=== PATIENT | male | born 1950 | race Two or more races ===

== ENCOUNTER 2016-05-22 12:24 | Inpatient (IN) | payer MEDICAID ==
[~2016-05-22] VITALS: Ht 172.7 cm; Wt 68.0 kg
[2016-05-22 13:11] VITALS: BP 123/77
[2016-05-22 13:28] LABS: EOSINOPHILS % (AUTO) 2.5 % (0.0-3.0); LYMPHOCYTES % (AUTO) 20.6 % (20.0-45.0); MEAN CORPUSCULAR HEMOGLOBIN 27.7 PG (27.0-31.0); MEAN CORPUSCULAR HGB CONC 32.6 G/DL (32.0-36.0); MEAN CORPUSCULAR VOLUME 85 FL (80-99); MONOCYTES % (AUTO) 5.1 % (1.0-10.0); NEUTROPHILS % (AUTO) 70.8 % (45.0-75.0); PLATELET COUNT 348 K/UL (150-450); RED CELL DISTRIBUTION WIDTH 13.2 % (11.6-14.8); WHITE BLOOD COUNT 6.2 K/UL (4.8-10.8)
[2016-05-22 13:33] LABS: PROTHROMBIN TIME 10.4 SEC (9.30-11.50)
[2016-05-22 13:40] LABS: TROPONIN I < 0.30 ng/mL (<=0.30)
[2016-05-22 13:41] LABS: ALANINE AMINOTRANSFERASE 70 U/L (3-41); ALBUMIN/GLOBULIN RATIO 0.9 (1.0-2.7); ALCOHOL < 10 mg/dL; ANION GAP 20 (5-15); ASPARTATE AMINO TRANSFERASE 74 U/L (5-40); CALCIUM 9.3 mg/dL (8.6-10.2); CARBON DIOXIDE 19 mEQ/L (20-30); CHLORIDE 97 mEQ/L (98-107); CREATININE 2.7 mg/dL (0.7-1.2); GLOMERULAR FILTRATION RATE 23.9 mL/min (>60); HEMOLYSIS 94; POTASSIUM 5.3 mEQ/L (3.4-4.9); SODIUM 136 mEQ/L (135-145); TOTAL PROTEIN 8.4 g/dL (6.6-8.7)
--- NOTE | 2016-05-22 14:17 | Diagnostic Imaging Report ---
Indication: Altered mental status Technique: spiral acquisitions obtained through the brain. Angled axial and coronal 5 x 5 mm slices were reconstructed. No IV contrast utilized. Radiation dose was minimized using automated exposure control Total dose length product 1354 mGycm. CTDIvol(s) 70 mGy Comparison: none FINDINGS: No acute hemorrhage or edema. No mass effect or midline shift. There is age-related enlargement of the ventricles and extra axial CSF spaces. There is periventricular deep white matter ischemic change. Normal loza-white differentiation. Visualized orbits are unremarkable. Visualized sinuses are unremarkable. Intact calvarium. IMPRESSION: Chronic and age-related changes. Negative for acute intracranial bleed or mass effect The CT scanner at [facility] is accredited by the [employer] and the scans are performed using protocols designed to limit radiation exposure to as low as reasonably achievable to attain images of sufficient resolution adequate for diagnostic evaluation
--- NOTE | 2016-05-22 14:42 | Emergency Room Report ---
History of Present Illness General Chief Complaint: Altered Level of Consciousness Source: EMS Present Illness HPI Patient is a 66-year-old male brought in by EMS after increased altered level consciousness. Patient reportedly had a stroke last week. Patient was noted to have increased difficulty with his left upper extremities and lower extremity. Patient prior history of renal insufficiency. The patient is unaware of his medications. Allergies: Coded Allergies: No Known Allergies (Unverified , 05/22/16) Patient History Past Medical History: old chart reviewed Reviewed Nursing Documentation: PMH: Agreed, PSxH: Agreed Nursing Documentation-PMH Hx Cardiac Problems: No Hx Hypertension: Yes Hx Pacemaker: No Hx Asthma: No Hx COPD: No Hx Diabetes: No Hx Cancer: No Hx Gastrointestinal Problems: No Hx Dialysis: No History Of Psychiatric Problem: No Hx Neurological Problems: No Hx Cerebrovascular Accident: Yes Hx Seizures: No Review of Systems All Other Systems: negative except mentioned in HPI Physical Exam Vital Signs Date Time Temp Pulse Resp B/P Pulse Ox O2 Delivery O2 Flow Rate FiO2 05/22/16 12:19 98.1 78 16 108/60 98 Room Air Sp02 EP Interpretation: reviewed, normal General Appearance: normal inspection, alert Head: atraumatic ENT: normal ENT inspection, hearing grossly normal, normal voice, dry mucus membranes Neck: normal inspection, full range of motion, supple, no bony tend Respiratory: normal inspection, lungs clear, normal breath sounds, no respiratory distress, no retraction, no wheezing Cardiovascular #1: regular rate, rhythm, no edema Gastrointestinal: normal inspection, normal bowel sounds, non tender, soft, no guarding, no hernia Musculoskeletal: decreased range of motion Neurologic: alert, responsive, motor weakness, other - slurred speech, left side weakness, hyperreflexia Psychiatric: normal inspection, judgement/insight normal, mood/affect normal Skin: normal inspection, normal color, no rash Medical Decision Making Diagnostic Impression: Primary Impression: Altered level of consciousness Additional Impressions: CVA, old, hemiparesis Hyperkalemia Renal insufficiency ER Course Patient presented for weakness. Patient presented for generalized weakness. Differential diagnosis included was not limited to anemia, urinary tract infection, electrolyte abnormality, hypothyroidism, myocardial infarction, myasthenia gravis, dehydration, among others. Because of complexity of patient' s case laboratory testing and imaging studies were ordered. The CT the head read by radiologist showed atrophic changes without evident acute hemorrhage or infarct. Patient was given IV fluids the patient given Kayexalate for hyperkalemia. I EKG interpreted by me showed left ventricular hypertrophy with normal sinus rhythm rate of 77 there were no acute ST changes noted. There was noted to be multiple areas of T wave inversion. Laboratory testing was notable for renal insufficiency and hyperkalemia and patient was started on IV fluids. Labs Test 05/22/16 13:00 White Blood Count 6.2 K/UL (4.8-10.8) Red Blood Count 3.80 M/UL (4.70-6.10) Hemoglobin 10.5 G/DL (14.2-18.0) Hematocrit 32.3 % (42.0-52.0) Mean Corpuscular Volume 85 FL (80-99) Mean Corpuscular Hemoglobin 27.7 PG (27.0-31.0) Mean Corpuscular Hemoglobin Concent 32.6 G/DL (32.0-36.0) Red Cell Distribution Width 13.2 % (11.6-14.8) Platelet Count 348 K/UL (150-450) Mean Platelet Volume 6.0 FL (6.5-10.1) Neutrophils (%) (Auto) 70.8 % (45.0-75.0) Lymphocytes (%) (Auto) 20.6 % (20.0-45.0) Monocytes (%) (Auto) 5.1 % (1.0-10.0) Eosinophils (%) (Auto) 2.5 % (0.0-3.0) Basophils (%) (Auto) 1.0 % (0.0-2.0) Prothrombin Time 10.4 SEC (9.30-11.50) Prothromb Time International Ratio 1.0 (0.9-1.1) Activated Partial Thromboplast Time 22 SEC (23-33) Sodium Level 136 mEQ/L (135-145) Potassium Level 5.3 mEQ/L (3.4-4.9) Chloride Level 97 mEQ/L (98-107) Carbon Dioxide Level 19 mEQ/L (20-30) Anion Gap 20 (5-15) Blood Urea Nitrogen 39 mg/dL (7-23) Creatinine 2.7 mg/dL (0.7-1.2) Estimat Glomerular Filtration Rate 23.9 mL/min (>60) Glucose Level 97 mg/dL (74-106) Calcium Level 9.3 mg/dL (8.6-10.2) Total Bilirubin < 0.2 mg/dL (0.0-1.2) Aspartate Amino Transf (AST/SGOT) 74 U/L (5-40) Alanine Aminotransferase (ALT/SGPT) 70 U/L (3-41) Alkaline Phosphatase 44 U/L (40-129) Troponin I < 0.30 ng/mL (<=0.30) Total Protein 8.4 g/dL (6.6-8.7) Albumin 4.0 g/dL (3.5-5.2) Globulin 4.4 g/dL Albumin/Globulin Ratio 0.9 (1.0-2.7) Serum Alcohol < 10 mg/dL EKG Diagnostic Results Rate: normal Rhythm: NSR ST Segments: other - twave inversion Last Vital Signs Date Time Temp Pulse Resp B/P Pulse Ox O2 Delivery O2 Flow Rate FiO2 05/22/16 13:11 98.5 79 18 123/77 99 Room Air Status: unchanged Disposition: ADMITTED INPATIENT Condition: Serious Referrals: [facility],REFERRING (PCP) Karri Gardner May 22, 2016 14:42
[2016-05-22 14:45] VITALS: BP 126/80
[2016-05-22] MEDS ORDERED: Sodium Polystyrene Sulfonate 15gm Powder ORAL ONE (14:45)
[2016-05-22] MEDS ORDERED: DuoNeb 0.5-3(2.5)mg/3ml neb HHN PRN (16:15)
[2016-05-22] MEDS ORDERED: LORazepam Inj 2mg/ml 1ml IV PRN (16:15)
[2016-05-22] MEDS ORDERED: Nitroglycerin Subl 0.4mg tab (Bottle Of 25) SL PRN (16:15)
[2016-05-22] MEDS ORDERED: Mylanta II UD 30ml ORAL PRN (16:15)
[2016-05-22] MEDS ORDERED: Promethazine/Codeine 5ml UD ORAL PRN (16:15)
[2016-05-22] MEDS ORDERED: Miralax 17gm pkt ORAL PRN (16:15)
[2016-05-22 17:00] VITALS: BP 154/80
[2016-05-22 18:00] VITALS: BP 149/85
[2016-05-22] MEDS ORDERED: UNOBMED (18:16)
[2016-05-22] MEDS: D5 1/2NS 1,000 ML IV SCH (18:21)
[2016-05-22 19:00] VITALS: BP 142/82
[2016-05-22 20:00] VITALS: BP 147/63
[2016-05-22] MEDS: Heparin 5000 units/ml inj SUBQ SCH (21:20)
[2016-05-22] MEDS: Morphine Sulfate 2mg/ml Inj IVP PRN (21:22)
[2016-05-23] VITALS: BP 165/93
[2016-05-23] MEDS: D5 1/2NS 1,000 ML IV SCH ×2 (01:31→14:29)
[2016-05-23] MEDS: Morphine Sulfate 2mg/ml Inj IVP PRN ×3 (03:30→23:02)
[2016-05-23 04:00] VITALS: BP 131/89
[2016-05-23 08:03] LABS: BASOPHILS % (AUTO) 1.5 % (0.0-2.0); EOSINOPHILS % (AUTO) 4.8 % (0.0-3.0); LYMPHOCYTES % (AUTO) 29.1 % (20.0-45.0); MEAN CORPUSCULAR HEMOGLOBIN 27.2 PG (27.0-31.0); MEAN CORPUSCULAR HGB CONC 31.3 G/DL (32.0-36.0); MEAN CORPUSCULAR VOLUME 87 FL (80-99); MEAN PLATELET VOLUME 5.7 FL (6.5-10.1); MONOCYTES % (AUTO) 8.1 % (1.0-10.0); NEUTROPHILS % (AUTO) 56.5 % (45.0-75.0); PLATELET COUNT 332 K/UL (150-450); RED BLOOD COUNT 3.55 M/UL (4.70-6.10); RED CELL DISTRIBUTION WIDTH 12.8 % (11.6-14.8)
[2016-05-23 08:10] LABS: PROTHROMBIN TIME 10.6 SEC (9.30-11.50)
[2016-05-23 08:18] LABS: ALBUMIN/GLOBULIN RATIO 0.9 (1.0-2.7); CALCIUM 9.1 mg/dL (8.6-10.2); CHOLESTEROL/HDL RATIO 2.4 (3.3-4.4); CREATININE 2.2 mg/dL (0.7-1.2); GLOMERULAR FILTRATION RATE 30.3 mL/min (>60); POTASSIUM 4.5 mEQ/L (3.4-4.9); TOTAL PROTEIN 7.5 g/dL (6.6-8.7)
[2016-05-23 08:40] LABS: FREE T3 2.4 pg/mL (2.3-4.2); THYROID STIMULATING HORMONE 0.506 uIU/mL (0.300-4.500)
[2016-05-23 08:42] VITALS: BP 145/88
[2016-05-23 08:43] LABS: APPEARANCE,URINE CLEAR; KETONES,URINE NEGATIVE (NEGATIVE); LEUKOCYTE ESTERASE ,URINE NEGATIVE (NEGATIVE); NITRITE,URINE NEGATIVE (NEGATIVE); PH,URINE 6.5 (4.5-8.0); PROTEIN,URINE 3+ (NEGATIVE); UROBILINOGEN,URINE NORMAL MG/DL (0.0-1.0)
[2016-05-23 08:52] LABS: MAGNESIUM 1.9 mg/dL (1.7-2.5); PHOSPHORUS 4.5 mg/dL (2.5-4.8); URIC ACID 8.4 mg/dL (3.0-7.5)
[2016-05-23] MEDS: Heparin 5000 units/ml inj SUBQ SCH ×2 (09:00→21:00)
[2016-05-23 09:31] LABS: BACTERIA,URINE OCCASIONAL /HPF; RBC,URINE 0-2 /HPF (0 - 0); SQUAMOUS EPITHELIAL CELL,UR OCCASIONAL /LPF (NONE/OCC); WBC,URINE 0-2 /HPF (0 - 0)
--- NOTE | 2016-05-23 10:34 | Diagnostic Imaging Report ---
Indications: Abnormal renal function tests Technique: Transabdominal real-time grayscale and duplex Doppler imaging of the kidneys, retroperitoneum, and urinary bladder was performed Findings: Comparison: None Right kidney measures 8.7 cm in length. Normal contour, echotexture, cortical thickness. No stones, other focal lesions, hydronephrosis, or obvious perinephric abnormalities. Left kidney measures 9.7 cm in length. Normal contour, echotexture, cortical thickness. 10 mm circumscribed anechoic focus lower pole cortex. No stones, other focal lesions, hydronephrosis, or obvious perinephric abnormalities. The intrahepatic portion of inferior vena cava is patent and normal caliber. The urinary bladder is moderately distended without obvious abnormality. IMPRESSION: Left renal cortical small cyst Otherwise sonographically unremarkable kidneys
[2016-05-23 11:47] VITALS: BP 148/85
--- NOTE | 2016-05-23 14:34 | Cardiology Report ---
APPROVED REPORT EKG Measurement Heart [id number] Normal sinus rhythm T wave abnormality, consider lateral ischemia Prolonged QT Abnormal ECG
--- NOTE | 2016-05-23 15:22 | Cardiac Electrophysiology PN ---
Subjective Subjective [id number] Objective Last 24 Hour Vital Signs Date Time Temp Pulse Resp B/P Pulse Ox O2 Delivery O2 Flow Rate FiO2 05/23/16 11:47 97.5 73 20 148/85 95 Room Air 05/23/16 08:42 96.9 66 18 145/88 98 Room Air 05/23/16 08:00 68 05/23/16 04:00 97.9 67 16 131/89 99 Room Air 05/23/16 04:00 69 05/23/16 04:00 98.5 05/23/16 02:27 165/93 05/23/16 00:00 98.2 66 18 165/93 98 Room Air 05/23/16 00:00 67 05/22/16 20:30 98.5 77 14 142/82 99 Room Air 05/22/16 20:00 97.3 88 18 147/63 99 Room Air 05/22/16 19:00 98.5 77 14 142/82 99 Room Air 05/22/16 18:00 98.5 78 15 149/85 99 Room Air 05/22/16 17:00 98.5 81 17 154/80 99 Room Air Intake and Output 05/22/16 05/23/16 19:00 07:00 Intake Total 1000 ml 500 ml Output Total 200 ml 500 ml Balance 800 ml 0 ml IV Total 1000 ml 500 ml Output Urine Total 200 ml 500 ml Laboratory Tests Test 05/23/16 06:00 05/23/16 07:40 Urine Color Yellow Urine Appearance Clear Urine pH 6.5 (4.5-8.0) Urine Specific [place] 1.005 (1.005-1.035) Urine Protein 3+ (NEGATIVE) H Urine Glucose (UA) Negative (NEGATIVE) Urine Ketones Negative (NEGATIVE) Urine Occult Blood Negative (NEGATIVE) Urine Nitrite Negative (NEGATIVE) Urine Bilirubin Negative (NEGATIVE) Urine Urobilinogen Normal MG/DL (0.0-1.0) Urine Leukocyte Esterase Negative (NEGATIVE) Urine RBC 0-2 /HPF (0 - 0) H Urine WBC 0-2 /HPF (0 - 0) Urine Squamous Epithelial Cells Occasional /LPF Urine Bacteria Occasional /HPF (NONE) Urine Eosinophils None seen White Blood Count 5.0 K/UL (4.8-10.8) Red Blood Count 3.55 M/UL (4.70-6.10) L Hemoglobin 9.7 G/DL (14.2-18.0) L Hematocrit 30.8 % (42.0-52.0) L Mean Corpuscular Volume 87 FL (80-99) Mean Corpuscular Hemoglobin 27.2 PG (27.0-31.0) Mean Corpuscular Hemoglobin Concent 31.3 G/DL (32.0-36.0) L Red Cell Distribution Width 12.8 % (11.6-14.8) Platelet Count 332 K/UL (150-450) Mean Platelet Volume 5.7 FL (6.5-10.1) L Neutrophils (%) (Auto) 56.5 % (45.0-75.0) Lymphocytes (%) (Auto) 29.1 % (20.0-45.0) Monocytes (%) (Auto) 8.1 % (1.0-10.0) Eosinophils (%) (Auto) 4.8 % (0.0-3.0) H Basophils (%) (Auto) 1.5 % (0.0-2.0) Prothrombin Time 10.6 SEC (9.30-11.50) Prothromb Time International Ratio 1.0 (0.9-1.1) Activated Partial Thromboplast Time 21 SEC (23-33) L Sodium Level 140 mEQ/L (135-145) Potassium Level 4.5 mEQ/L (3.4-4.9) Chloride Level 102 mEQ/L (98-107) Carbon Dioxide Level 21 mEQ/L (20-30) Anion Gap 17 (5-15) H Blood Urea Nitrogen 35 mg/dL (7-23) H Creatinine 2.2 mg/dL (0.7-1.2) H Estimat Glomerular Filtration Rate 30.3 mL/min (>60) Glucose Level 90 mg/dL (74-106) Plasma/Serum Osmolality Pending Uric Acid 8.4 mg/dL (3.0-7.5) H Calcium Level 9.1 mg/dL (8.6-10.2) Phosphorus Level 4.5 mg/dL (2.5-4.8) Magnesium Level 1.9 mg/dL (1.7-2.5) Total Bilirubin 0.4 mg/dL (0.0-1.2) Aspartate Amino Transf (AST/SGOT) 55 U/L (5-40) H Alanine Aminotransferase (ALT/SGPT) 55 U/L (3-41) H Alkaline Phosphatase 39 U/L (40-129) L Total Creatine Kinase 110 U/L (38-174) Total Protein 7.5 g/dL (6.6-8.7) Albumin 3.6 g/dL (3.5-5.2) Globulin 3.9 g/dL Albumin/Globulin Ratio 0.9 (1.0-2.7) L Triglycerides Level 124 mg/dL (< 150) Cholesterol Level 109 mg/dL (< 200) LDL Cholesterol 39 mg/dL (60-99) L HDL Cholesterol 45 mg/dL (> 60) Cholesterol/HDL Ratio 2.4 (3.3-4.4) L Thyroid Stimulating Hormone (TSH) 0.506 uIU/mL (0.300-4.500) Free Thyroxine 1.21 ng/dL (0.86-1.85) Free Triiodothyronine 2.4 pg/mL (2.3-4.2) Cortisol Pending HAILEY LOOMIS May 23, 2016 15:22
[2016-05-23 16:00] VITALS: BP 162/88
[2016-05-23 20:00] VITALS: BP 161/60
--- NOTE | 2016-05-23 21:19 | Consultation ---
DATE OF CONSULTATION: 05/23/2013 CARDIOLOGY CONSULTATION CONSULTING PHYSICIAN: Sascha Joseph M.D. REFERRING PHYSICIAN: Yo Whitehead M.D. REASON FOR CONSULTATION: Management of hypertension and altered level of consciousness. HISTORY OF PRESENT ILLNESS: The patient is a 66-year-old gentleman who reported he had a stroke last week, was brought to the emergency room for difficulty with left upper extremity and left lower extremity. The patient also has history of renal insufficiency and was found to have hyperkalemia and renal failure. The blood pressure in the emergency room was 108/60, pulse is 78, and temperature was 98.1. At the time of my evaluation, the patient is unable to provide meaningful information, but this patient does not have any chest pain or shortness of breath. REVIEW OF SYSTEMS: Negative other than what was mentioned in the history of present illness. PAST MEDICAL HISTORY: 1. Hypertension. 2. Chronic kidney disease. 3. History of CVA. FAMILY HISTORY: Noncontributory. PHYSICAL EXAMINATION: VITAL SIGNS: Blood pressure is 148/85, was 165/92 in the emergency room; pulse 72, respirations . NECK: Shows no JVD. LUNGS: Coarse rhonchi. CARDIOVASCULAR: Shows regular S1 and S2 with no gallop or murmur. ABDOMEN: Soft. EXTREMITIES: No pitting edema. LABORATORY DATA: His EKG shows sinus rhythm with T-wave abnormalities suggestive of lateral ischemia, inferolateral ischemia. Labs show a white count of 5, hemoglobin 9.7, hematocrit 28.8, and platelet count 332,000. Sodium 140, potassium 4.5, BUN of 35, and creatinine 2.2. Initial potassium is 5.3. Troponin is negative. ASSESSMENT AND PLAN: 1. Abnormal electrocardiogram, suggestive of inferolateral ischemia. The patient does not have any chest pain. The first set of cardiac enzymes are negative. We will get an echocardiogram and completely rule out myocardial infarction protocol. 2. Mild hypertension. Hold of antihypertensives at this time in view of possible recurrence of the stroke. The patient underwent a head CT, which showed chronic age-related changes, negative for acute intracranial bleed or mass effect. Further evaluation by Neurology. 3. Chronic kidney disease. 4. History of recent stroke. Thank you very much, Dr. Whitehead, for allowing me participate in the care of this patient. Please do not hesitate to contact me for any questions regarding my evaluation. Sascha Joseph M.D. DR: CARLOS JOB#: [id number] CC:
--- NOTE | 2016-05-23 22:33 | History and Physical ---
History of Present Illness General Date patient seen: May 23, 2016 Reason for Hospitalization: Altered Level of Consciousness Present Illness HPI This patient is a 66-year-old male with PMH for HTN, CKD, and recent CVA who presented to the ED for worsening altered mental status. Patient was also reported to have difficulty with left upper extremity and left lower extremity weakness. Patient is unable to give further history. Allergies: Coded Allergies: No Known Allergies (Unverified , 05/22/16) Medication History Miscellaneous Medications Unable to Obtain Medications (Unable To Obtain Meds), (Reported) Patient History Limited by: medical condition History Provided By: Medical Record Healthcare decision maker Resuscitation status Full Code Advanced Directive on File Past Medical/Surgical History Past Medical/Surgical History: (1) HTN (hypertension) (2) CVA, old, hemiparesis (3) Renal insufficiency Review of Systems ROS Narrative limited due to pts mental status. Physical Exam General Appearance: WD/WN, no apparent distress HEENT: normocephalic Neck: supple Respiratory/Chest: lungs clear Cardiovascular/Chest: normal rate, regular rhythm Abdomen: non tender, soft Extremities: no edema Neurologic: alert Last 24 Hour Vital Signs Date Time Temp Pulse Resp B/P Pulse Ox O2 Delivery O2 Flow Rate FiO2 05/23/16 20:00 97.5 69 18 161/60 95 Room Air 05/23/16 16:00 97.5 72 19 162/88 100 Room Air 05/23/16 11:47 97.5 73 20 148/85 95 Room Air 05/23/16 08:42 96.9 66 18 145/88 98 Room Air 05/23/16 08:00 68 05/23/16 04:00 97.9 67 16 131/89 99 Room Air 05/23/16 04:00 69 05/23/16 04:00 98.5 05/23/16 02:27 165/93 05/23/16 00:00 98.2 66 18 165/93 98 Room Air 05/23/16 00:00 67 Intake and Output 05/22/16 05/23/16 19:00 07:00 Intake Total 1000 ml 500 ml Output Total 200 ml 500 ml Balance 800 ml 0 ml IV Total 1000 ml 500 ml Output Urine Total 200 ml 500 ml Laboratory Tests Test 05/23/16 06:00 05/23/16 07:40 Urine Color Yellow Urine Appearance Clear Urine pH 6.5 (4.5-8.0) Urine Specific [place] 1.005 (1.005-1.035) Urine Protein 3+ (NEGATIVE) H Urine Glucose (UA) Negative (NEGATIVE) Urine Ketones Negative (NEGATIVE) Urine Occult Blood Negative (NEGATIVE) Urine Nitrite Negative (NEGATIVE) Urine Bilirubin Negative (NEGATIVE) Urine Urobilinogen Normal MG/DL (0.0-1.0) Urine Leukocyte Esterase Negative (NEGATIVE) Urine RBC 0-2 /HPF (0 - 0) H Urine WBC 0-2 /HPF (0 - 0) Urine Squamous Epithelial Cells Occasional /LPF Urine Bacteria Occasional /HPF (NONE) Urine Eosinophils None seen White Blood Count 5.0 K/UL (4.8-10.8) Red Blood Count 3.55 M/UL (4.70-6.10) L Hemoglobin 9.7 G/DL (14.2-18.0) L Hematocrit 30.8 % (42.0-52.0) L Mean Corpuscular Volume 87 FL (80-99) Mean Corpuscular Hemoglobin 27.2 PG (27.0-31.0) Mean Corpuscular Hemoglobin Concent 31.3 G/DL (32.0-36.0) L Red Cell Distribution Width 12.8 % (11.6-14.8) Platelet Count 332 K/UL (150-450) Mean Platelet Volume 5.7 FL (6.5-10.1) L Neutrophils (%) (Auto) 56.5 % (45.0-75.0) Lymphocytes (%) (Auto) 29.1 % (20.0-45.0) Monocytes (%) (Auto) 8.1 % (1.0-10.0) Eosinophils (%) (Auto) 4.8 % (0.0-3.0) H Basophils (%) (Auto) 1.5 % (0.0-2.0) Prothrombin Time 10.6 SEC (9.30-11.50) Prothromb Time International Ratio 1.0 (0.9-1.1) Activated Partial Thromboplast Time 21 SEC (23-33) L Sodium Level 140 mEQ/L (135-145) Potassium Level 4.5 mEQ/L (3.4-4.9) Chloride Level 102 mEQ/L (98-107) Carbon Dioxide Level 21 mEQ/L (20-30) Anion Gap 17 (5-15) H Blood Urea Nitrogen 35 mg/dL (7-23) H Creatinine 2.2 mg/dL (0.7-1.2) H Estimat Glomerular Filtration Rate 30.3 mL/min (>60) Glucose Level 90 mg/dL (74-106) Plasma/Serum Osmolality Pending Uric Acid 8.4 mg/dL (3.0-7.5) H Calcium Level 9.1 mg/dL (8.6-10.2) Phosphorus Level 4.5 mg/dL (2.5-4.8) Magnesium Level 1.9 mg/dL (1.7-2.5) Total Bilirubin 0.4 mg/dL (0.0-1.2) Aspartate Amino Transf (AST/SGOT) 55 U/L (5-40) H Alanine Aminotransferase (ALT/SGPT) 55 U/L (3-41) H Alkaline Phosphatase 39 U/L (40-129) L Total Creatine Kinase 110 U/L (38-174) Total Protein 7.5 g/dL (6.6-8.7) Albumin 3.6 g/dL (3.5-5.2) Globulin 3.9 g/dL Albumin/Globulin Ratio 0.9 (1.0-2.7) L Triglycerides Level 124 mg/dL (< 150) Cholesterol Level 109 mg/dL (< 200) LDL Cholesterol 39 mg/dL (60-99) L HDL Cholesterol 45 mg/dL (> 60) Cholesterol/HDL Ratio 2.4 (3.3-4.4) L Thyroid Stimulating Hormone (TSH) 0.506 uIU/mL (0.300-4.500) Free Thyroxine 1.21 ng/dL (0.86-1.85) Free Triiodothyronine 2.4 pg/mL (2.3-4.2) Cortisol Pending Height (Feet): 5 Height (Inches): 8.00 Weight (Pounds): 150 Medications Current Medications Medications (Trade) Dose Ordered Sig/Jacob Route PRN Reason Start Time Stop Time Status Last Admin Dose Admin Acetaminophen (Tylenol) 650 mg Q4H PRN ORAL fever 05/22/16 16:15 06/21/16 16:14 Al Hydroxide/Mg Hydroxide (Mylanta II) 30 ml Q6H PRN ORAL dyspepsia 05/22/16 16:15 06/21/16 16:14 Albuterol/ Ipratropium (DuoNeb 0.5-3(2.5)mg/3ml) 3 ml Q4H PRN HHN Shortness of Breath 05/22/16 16:15 05/27/16 16:14 Clonidine HCl (Catapres) 0.1 mg Q4H PRN ORAL For High Blood Pressure 05/22/16 16:15 06/21/16 16:14 05/23/16 02:27 Dextrose (Dextrose 50%) STAT PRN IV Hypoglycemia 05/22/16 16:15 06/21/16 16:14 Dextrose/Sodium Chloride (D5 0.45% NS) 1,000 ml @ 50 mls/hr Q20H IV 05/22/16 18:30 06/21/16 18:29 05/23/16 14:29 Heparin Sodium (Porcine) (Heparin 5000 units/ml) 5,000 units EVERY 12 HOURS SUBQ 05/22/16 21:00 06/21/16 20:59 05/22/16 21:20 Lorazepam (Ativan 2mg/ml 1ml) 0.5 mg Q4H PRN IV For Anxiety 05/22/16 16:15 05/29/16 16:14 Morphine Sulfate (Morphine Sulfate) 1 mg Q4H PRN IVP For Pain 7-10 05/22/16 16:15 05/29/16 16:14 05/23/16 13:14 Nitroglycerin (Ntg) 0.4 mg Q5M X 3 DOSES PRN SL Prn Chest Pain 05/22/16 16:15 06/21/16 16:14 Ondansetron HCl (Zofran) 4 mg Q6H PRN IVP Nausea & Vomiting 05/22/16 16:15 06/21/16 16:14 Polyethylene Glycol (Miralax) 17 gm HSPRN PRN ORAL Constipation 05/22/16 16:15 06/21/16 16:14 Promethazine HCl/ Codeine (Phenergan with Codeine) 5 ml Q4H PRN ORAL For Cough 05/22/16 16:15 06/21/16 16:14 Temazepam (Restoril) 15 mg HSPRN PRN ORAL Insomnia 05/22/16 16:15 05/29/16 16:14 Assessment/Plan Problem List: (1) Hyperkalemia ICD Codes: E87.5 - Hyperkalemia SNOMED: 49332358, , 7474918251504 (2) Renal insufficiency ICD Codes: N28.9 - Disorder of kidney and ureter, unspecified SNOMED: 070730039 (3) Altered level of consciousness ICD Codes: R40.4 - Transient alteration of awareness SNOMED: 9280448 (4) HTN (hypertension) ICD Codes: I10 - Essential (primary) hypertension SNOMED: 03128284 (5) CVA, old, hemiparesis ICD Codes: I69.359 - Hemiplegia and hemiparesis following cerebral infarction affecting unspecified side SNOMED: 33432415, , [id number] Assessment/Plan Resume home meds. PT/OT eval. Hold off on anti-hypertensives per cardio. dvt ppx. neuro eval. VENECIA FLORENCE May 23, 2016 22:33
[2016-05-24] VITALS: BP 169/99
[2016-05-24] MEDS: Morphine Sulfate 2mg/ml Inj IVP PRN ×3 (03:58→21:49)
[2016-05-24 04:00] VITALS: BP 145/88
[2016-05-24 08:10] LABS: CORTISOL LC 10.6 ug/dL (.)
[2016-05-24 08:21] VITALS: BP 146/91
[2016-05-24] MEDS: Heparin 5000 units/ml inj SUBQ SCH ×2 (09:13→20:38)
[2016-05-24 10:11] LABS: EOSINOPHILS % (AUTO) 6.9 % (0.0-3.0); LYMPHOCYTES % (AUTO) 32.2 % (20.0-45.0); MEAN CORPUSCULAR HEMOGLOBIN 27.3 PG (27.0-31.0); MEAN CORPUSCULAR HGB CONC 31.4 G/DL (32.0-36.0); MEAN CORPUSCULAR VOLUME 87 FL (80-99); MEAN PLATELET VOLUME 5.7 FL (6.5-10.1); MONOCYTES % (AUTO) 8.8 % (1.0-10.0); PLATELET COUNT 282 K/UL (150-450); RED BLOOD COUNT 3.68 M/UL (4.70-6.10); RED CELL DISTRIBUTION WIDTH 13.2 % (11.6-14.8); WHITE BLOOD COUNT 5.2 K/UL (4.8-10.8)
--- NOTE | 2016-05-24 10:19 | Nephrology Progress Note ---
Assessment/Plan Problem List: (1) HTN (hypertension) (2) CVA, old, hemiparesis (3) Altered level of consciousness (4) Hyperkalemia (5) Renal insufficiency (6) ARF (acute renal failure) (7) Anemia of chronic disease Plan Continue IVF AM labs - pending Monitor BUN/cr Monitor Lytes K level - normal PT/OT eval. Monitor neuro status Monitor H&H DVT ppx. Cardio f/u Neuro f/u Subjective ROS Limited/Unobtainable: Yes Subjective In bed, asleep, easily aroused Objective Objective Last 24 Hour Vital Signs Date Time Temp Pulse Resp B/P Pulse Ox O2 Delivery O2 Flow Rate FiO2 05/24/16 08:21 97.5 65 20 146/91 98 Room Air 05/24/16 07:50 65 18 Room Air 21 05/24/16 04:00 97.0 65 18 145/88 98 Room Air 05/24/16 04:00 71 05/24/16 00:00 97.2 69 18 169/99 97 Room Air 05/24/16 00:00 72 05/23/16 23:11 169/99 05/23/16 20:00 68 05/23/16 20:00 97.5 69 18 161/60 95 Room Air 05/23/16 19:30 68 20 Room Air 21 05/23/16 16:00 97.5 72 19 162/88 100 Room Air 05/23/16 16:00 68 05/23/16 11:47 97.5 73 20 148/85 95 Room Air Intake and Output 05/23/16 05/24/16 19:00 07:00 Intake Total 493.33 ml 810 ml Output Total 100 ml 500 ml Balance 393.33 ml 310 ml Intake Oral 120 ml 360 ml IV Total 373.33 ml 450 ml Output Urine Total 100 ml 500 ml # Voids 2 Laboratory Tests 05/24/16 08:50: White Blood Count [Pending], Red Blood Count [Pending], Hemoglobin [Pending], Hematocrit [Pending], Mean Corpuscular Volume [Pending], Mean Corpuscular Hemoglobin [Pending], Mean Corpuscular Hemoglobin Concent [Pending], Red Cell Distribution Width [Pending], Platelet Count [Pending], Mean Platelet Volume [ Pending], Neutrophils (%) (Auto) [Pending], Lymphocytes (%) (Auto) [Pending], Monocytes (%) (Auto) [Pending], Eosinophils (%) (Auto) [Pending], Basophils (%) (Auto) [Pending], Sodium Level [Pending], Potassium Level [Pending], Chloride Level [Pending], Carbon Dioxide Level [Pending], Blood Urea Nitrogen [Pending], Creatinine [Pending], Estimat Glomerular Filtration Rate [Pending], Glucose Level [Pending], Calcium Level [Pending], Troponin I [Pending], Pro-B-Type Natriuretic Peptide [Pending], Thyroid Stimulating Hormone (TSH) [Pending], Free Thyroxine [Pending] Height (Feet): 5 Height (Inches): 8.00 Weight (Pounds): 150 General Appearance: no apparent distress EENT: normal ENT inspection Neck: non-tender, normal alignment, supple, normal inspection Cardiovascular: normal rate, regular rhythm, no JVD Respiratory/Chest: lungs clear, normal breath sounds Abdomen: soft Extremities: non-tender, normal inspection, no calf tenderness, normal capillary refill Neurologic: responsive Yadira Brewster N.P. May 24, 2016 10:19
[2016-05-24 10:31] LABS: CALCIUM 9.1 mg/dL (8.6-10.2); CREATININE 2.2 mg/dL (0.7-1.2); GLOMERULAR FILTRATION RATE 30.3 mL/min (>60)
[2016-05-24 10:37] LABS: THYROID STIMULATING HORMONE 0.628 uIU/mL (0.300-4.500)
[2016-05-24] MEDS: D5 1/2NS 1,000 ML IV SCH (10:44)
[2016-05-24 10:54] LABS: TROPONIN I < 0.30 ng/mL (<=0.30)
[2016-05-24 11:24] VITALS: BP 141/83
--- NOTE | 2016-05-24 15:29 | Cardiac Electrophysiology PN ---
Assessment/Plan Assessment/Plan 1. Abnormal electrocardiogram, suggestive of inferolateral ischemia.Ruled out for [place].Echocardiogram report is pending. 2. Mild hypertension. Hold of antihypertensives at this time in view of possible recurrence of the stroke. 3. AMS/syncope The patient underwent a head CT, which showed chronic age- related changes, negative for acute intracranial bleed or mass effect. Further evaluation by Neurology. 4. Chronic kidney disease. Follow up Dr Whitehead 5. History of recent stroke. Subjective Subjective Comfortable in NAD. No chest pain or SOB. Objective Last 24 Hour Vital Signs Date Time Temp Pulse Resp B/P Pulse Ox O2 Delivery O2 Flow Rate FiO2 05/24/16 12:00 68 05/24/16 11:24 97.9 74 20 141/83 100 Room Air 05/24/16 08:21 97.5 65 20 146/91 98 Room Air 05/24/16 08:00 63 05/24/16 07:50 65 18 Room Air 21 05/24/16 04:00 97.0 65 18 145/88 98 Room Air 05/24/16 04:00 71 05/24/16 00:00 97.2 69 18 169/99 97 Room Air 05/24/16 00:00 72 05/23/16 23:11 169/99 05/23/16 20:00 68 05/23/16 20:00 97.5 69 18 161/60 95 Room Air 05/23/16 19:30 68 20 Room Air 21 05/23/16 16:00 97.5 72 19 162/88 100 Room Air 05/23/16 16:00 68 Intake and Output 05/23/16 05/24/16 19:00 07:00 Intake Total 493.33 ml 810 ml Output Total 100 ml 500 ml Balance 393.33 ml 310 ml Intake Oral 120 ml 360 ml IV Total 373.33 ml 450 ml Output Urine Total 100 ml 500 ml # Voids 2 Laboratory Tests Test 05/24/16 08:50 White Blood Count 5.2 K/UL (4.8-10.8) Red Blood Count 3.68 M/UL (4.70-6.10) L Hemoglobin 10.0 G/DL (14.2-18.0) L Hematocrit 32.0 % (42.0-52.0) L Mean Corpuscular Volume 87 FL (80-99) Mean Corpuscular Hemoglobin 27.3 PG (27.0-31.0) Mean Corpuscular Hemoglobin Concent 31.4 G/DL (32.0-36.0) L Red Cell Distribution Width 13.2 % (11.6-14.8) Platelet Count 282 K/UL (150-450) Mean Platelet Volume 5.7 FL (6.5-10.1) L Neutrophils (%) (Auto) 51.0 % (45.0-75.0) Lymphocytes (%) (Auto) 32.2 % (20.0-45.0) Monocytes (%) (Auto) 8.8 % (1.0-10.0) Eosinophils (%) (Auto) 6.9 % (0.0-3.0) H Basophils (%) (Auto) 1.0 % (0.0-2.0) Sodium Level 138 mEQ/L (135-145) Potassium Level 4.0 mEQ/L (3.4-4.9) Chloride Level 99 mEQ/L (98-107) Carbon Dioxide Level 21 mEQ/L (20-30) Anion Gap 18 (5-15) H Blood Urea Nitrogen 38 mg/dL (7-23) H Creatinine 2.2 mg/dL (0.7-1.2) H Estimat Glomerular Filtration Rate 30.3 mL/min (>60) Glucose Level 83 mg/dL (74-106) Calcium Level 9.1 mg/dL (8.6-10.2) Troponin I < 0.30 ng/mL (<=0.30) Pro-B-Type Natriuretic Peptide 470 pg/mL (0-125) H Thyroid Stimulating Hormone (TSH) 0.628 uIU/mL (0.300-4.500) Free Thyroxine 1.13 ng/dL (0.86-1.85) Objective NECK: Shows no JVD. LUNGS: Coarse rhonchi. CARDIOVASCULAR: Shows regular S1 and S2 with no gallop or murmur. ABDOMEN: Soft. EXTREMITIES: No pitting edema. HAILEY LOOMIS May 24, 2016 15:29
[2016-05-24 16:00] VITALS: BP 149/100
[2016-05-24 20:00] VITALS: BP 140/82
[2016-05-25 00:31] VITALS: BP 153/92
[2016-05-25] MEDS: Morphine Sulfate 2mg/ml Inj IVP PRN ×5 (04:18→22:29)
[2016-05-25 04:35] VITALS: BP 127/90
[2016-05-25 06:30] LABS: BASOPHILS % (AUTO) 1.9 % (0.0-2.0); EOSINOPHILS % (AUTO) 7.9 % (0.0-3.0); LYMPHOCYTES % (AUTO) 29.7 % (20.0-45.0); MEAN CORPUSCULAR HEMOGLOBIN 28.4 PG (27.0-31.0); MEAN CORPUSCULAR HGB CONC 32.8 G/DL (32.0-36.0); MEAN CORPUSCULAR VOLUME 87 FL (80-99); MEAN PLATELET VOLUME 5.6 FL (6.5-10.1); MONOCYTES % (AUTO) 9.8 % (1.0-10.0); NEUTROPHILS % (AUTO) 50.7 % (45.0-75.0); PLATELET COUNT 254 K/UL (150-450); RED BLOOD COUNT 3.48 M/UL (4.70-6.10); RED CELL DISTRIBUTION WIDTH 12.9 % (11.6-14.8); WHITE BLOOD COUNT 5.3 K/UL (4.8-10.8)
[2016-05-25] MEDS: D5 1/2NS 1,000 ML IV SCH ×2 (06:30→23:00)
[2016-05-25 07:07] LABS: CALCIUM 8.8 mg/dL (8.6-10.2); CREATININE 2.1 mg/dL (0.7-1.2); POTASSIUM 3.7 mEQ/L (3.4-4.9)
[2016-05-25 08:00] VITALS: BP 153/63
[2016-05-25] MEDS: Heparin 5000 units/ml inj SUBQ SCH ×2 (08:29→22:28)
--- NOTE | 2016-05-25 09:48 | Nephrology Progress Note ---
Assessment/Plan Problem List: (1) HTN (hypertension) (2) CVA, old, hemiparesis (3) Altered level of consciousness (4) Hyperkalemia (5) Renal insufficiency (6) ARF (acute renal failure) (7) Anemia of chronic disease Plan Continue IVF Monitor BUN/cr Monitor Lytes K level - normal PT/OT eval. Monitor neuro status Monitor H&H, transfuse PRN DVT ppx. Cardio f/u Neuro f/u Subjective ROS Limited/Unobtainable: Yes Subjective In bed, asked how is feeling, his response "i don't know" Objective Objective Last 24 Hour Vital Signs Date Time Temp Pulse Resp B/P Pulse Ox O2 Delivery O2 Flow Rate FiO2 05/25/16 08:00 97.0 75 16 153/63 99 Room Air 05/25/16 07:37 67 17 Room Air 21 05/25/16 04:35 98.0 72 20 127/90 72 Room Air 05/25/16 04:35 98 Room Air 05/25/16 04:00 63 05/25/16 00:31 98.1 66 20 153/92 96 Room Air 05/25/16 00:00 61 05/24/16 22:19 97.5 05/24/16 20:00 69 05/24/16 20:00 97.5 69 20 140/82 97 Room Air 05/24/16 19:41 74 18 Room Air 21 05/24/16 16:00 79 05/24/16 16:00 97.7 72 20 149/100 95 Room Air 05/24/16 12:00 68 05/24/16 11:24 97.9 74 20 141/83 100 Room Air Intake and Output 05/24/16 05/25/16 19:00 07:00 Intake Total 525.83 ml 750 ml Output Total 250 ml 600 ml Balance 275.83 ml 150 ml Intake Oral 240 ml 300 ml IV Total 285.83 ml 450 ml Output Urine Total 250 ml 600 ml # Voids 2 Laboratory Tests 05/25/16 05:35: White Blood Count 5.3, Red Blood Count 3.48L, Hemoglobin 9.9L, Hematocrit 30.2L , Mean Corpuscular Volume 87, Mean Corpuscular Hemoglobin 28.4, Mean Corpuscular Hemoglobin Concent 32.8, Red Cell Distribution Width 12.9, Platelet Count 254, Mean Platelet Volume 5.6L, Neutrophils (%) (Auto) 50.7, Lymphocytes ( %) (Auto) 29.7, Monocytes (%) (Auto) 9.8, Eosinophils (%) (Auto) 7.9H, Basophils (%) (Auto) 1.9, Sodium Level 138, Potassium Level 3.7, Chloride Level 99, Carbon Dioxide Level 21, Anion Gap 18H, Blood Urea Nitrogen 40H, Creatinine 2.1H, Estimat Glomerular Filtration Rate 32.0, Glucose Level 94, Calcium Level 8.8 Height (Feet): 5 Height (Inches): 8.00 Weight (Pounds): 150 General Appearance: no apparent distress, alert Neck: non-tender, normal alignment, supple, normal inspection Cardiovascular: normal rate, regular rhythm, no JVD Respiratory/Chest: lungs clear, normal breath sounds, no respiratory distress Abdomen: soft, no organomegaly Extremities: non-tender, normal inspection, no calf tenderness Neurologic: alert Yadira Brewster N.P. May 25, 2016 09:48
[2016-05-25 12:00] VITALS: BP 148/81
--- NOTE | 2016-05-25 14:31 | Cardiac Electrophysiology PN ---
Assessment/Plan Assessment/Plan 1. Abnormal electrocardiogram with inferolateral ischemia.Ruled out for [place].Echocardiogram EF 60% 2. Mild hypertension.Off antihypertensives stable 3. AMS/syncope The patient underwent a head CT, which showed chronic age- related changes, negative for acute intracranial bleed or mass effect. Further evaluation by Neurology. 4. Chronic kidney disease. Follow up Dr Whitehead 5. History of recent stroke. 6. Anemia. Stool OB pending DW RN Subjective Subjective Comfortable in NAD.Pleasantly confused. No chest pain or SOB.In SR. Objective Last 24 Hour Vital Signs Date Time Temp Pulse Resp B/P Pulse Ox O2 Delivery O2 Flow Rate FiO2 05/25/16 12:00 66 05/25/16 12:00 97.2 72 17 148/81 98 05/25/16 08:00 97.0 75 16 153/63 99 Room Air 05/25/16 08:00 84 05/25/16 07:37 67 17 Room Air 21 05/25/16 04:35 98.0 72 20 127/90 72 Room Air 05/25/16 04:35 98 Room Air 05/25/16 04:00 63 05/25/16 00:31 98.1 66 20 153/92 96 Room Air 05/25/16 00:00 61 05/24/16 22:19 97.5 05/24/16 20:00 69 05/24/16 20:00 97.5 69 20 140/82 97 Room Air 05/24/16 19:41 74 18 Room Air 21 05/24/16 16:00 79 05/24/16 16:00 97.7 72 20 149/100 95 Room Air Intake and Output 05/24/16 05/25/16 19:00 07:00 Intake Total 525.83 ml 750 ml Output Total 250 ml 600 ml Balance 275.83 ml 150 ml Intake Oral 240 ml 300 ml IV Total 285.83 ml 450 ml Output Urine Total 250 ml 600 ml # Voids 2 Laboratory Tests Test 05/25/16 05:35 White Blood Count 5.3 K/UL (4.8-10.8) Red Blood Count 3.48 M/UL (4.70-6.10) L Hemoglobin 9.9 G/DL (14.2-18.0) L Hematocrit 30.2 % (42.0-52.0) L Mean Corpuscular Volume 87 FL (80-99) Mean Corpuscular Hemoglobin 28.4 PG (27.0-31.0) Mean Corpuscular Hemoglobin Concent 32.8 G/DL (32.0-36.0) Red Cell Distribution Width 12.9 % (11.6-14.8) Platelet Count 254 K/UL (150-450) Mean Platelet Volume 5.6 FL (6.5-10.1) L Neutrophils (%) (Auto) 50.7 % (45.0-75.0) Lymphocytes (%) (Auto) 29.7 % (20.0-45.0) Monocytes (%) (Auto) 9.8 % (1.0-10.0) Eosinophils (%) (Auto) 7.9 % (0.0-3.0) H Basophils (%) (Auto) 1.9 % (0.0-2.0) Sodium Level 138 mEQ/L (135-145) Potassium Level 3.7 mEQ/L (3.4-4.9) Chloride Level 99 mEQ/L (98-107) Carbon Dioxide Level 21 mEQ/L (20-30) Anion Gap 18 (5-15) H Blood Urea Nitrogen 40 mg/dL (7-23) H Creatinine 2.1 mg/dL (0.7-1.2) H Estimat Glomerular Filtration Rate 32.0 mL/min (>60) Glucose Level 94 mg/dL (74-106) Calcium Level 8.8 mg/dL (8.6-10.2) Objective NECK: Shows no JVD. LUNGS: Coarse rhonchi. CARDIOVASCULAR: Shows regular S1 and S2 with no gallop or murmur. ABDOMEN: Soft. EXTREMITIES: No pitting edema. HAILEY LOOMIS May 25, 2016 14:31
[2016-05-25 16:00] VITALS: BP 149/95
[2016-05-25 20:00] VITALS: BP 143/83
[2016-05-26] VITALS (8 sets, daily range): BP systolic 100–169; BP diastolic 71–105
[2016-05-26] MEDS: Morphine Sulfate 2mg/ml Inj IVP PRN ×3 (02:35→11:12)
[2016-05-26 08:40] LABS: BASOPHILS % (AUTO) 0.8 % (0.0-2.0); MEAN CORPUSCULAR HEMOGLOBIN 27.2 PG (27.0-31.0); MEAN CORPUSCULAR HGB CONC 32.4 G/DL (32.0-36.0); MEAN CORPUSCULAR VOLUME 84 FL (80-99); MEAN PLATELET VOLUME 6.8 FL (6.5-10.1); MONOCYTES % (AUTO) 12.2 % (1.0-10.0); NEUTROPHILS % (AUTO) 51.1 % (45.0-75.0); PLATELET COUNT 287 K/UL (150-450); RED CELL DISTRIBUTION WIDTH 13.1 % (11.6-14.8); WHITE BLOOD COUNT 5.9 K/UL (4.8-10.8)
[2016-05-26 08:54] LABS: CALCIUM 8.8 mg/dL (8.6-10.2); CREATININE 2.4 mg/dL (0.7-1.2); GLOMERULAR FILTRATION RATE 27.4 mL/min (>60)
[2016-05-26] MEDS: Heparin 5000 units/ml inj SUBQ SCH ×2 (09:07→21:00)
--- NOTE | 2016-05-26 11:44 | Cardiology Report ---
APPROVED REPORT EXAM: Two-dimensional and M-mode echocardiogram with Doppler and color Doppler. INDICATION Left ventricular function Technically difficult study due to poor acoustic windows. M-mode measurements not obtainable due to cardica structure. Normal left ventricular chamber size, systolic function and wall motion. Left ventricular ejection fraction estimated to be 55-60 %. Mild left ventricular hypertrophy. No evidence of pericardial fat or effusion. Mild left atrial enlargement by 2D. Right cardiac chamber sizes are within normal limits. Focal aortic valve sclerosis with adequate cusp excursion Thickened mitral valve leaflets with normal excursion. Mitral annulus and aortic root calcification. Pulmonic valve not well visualized. Normal tricuspid valve structure. IVC is normal in size with physiologic collapse. A color flow and spectral Doppler study was performed and revealed: No aortic regurgitation. Trace mitral regurgitation. Left ventricular diastolic dysfunction grade 1. No tricuspid regurgitation.
[2016-05-26] MEDS ORDERED: D5 1/2NS 1000ml IV ONE (15:25)
--- NOTE | 2016-05-26 17:22 | Cardiac Electrophysiology PN ---
Assessment/Plan Assessment/Plan 1. Abnormal electrocardiogram with inferolateral ischemia.Ruled out for [place].Echocardiogram EF 60% 2. Mild hypertension.Off antihypertensives stable 3. AMS/syncope, head CT showed chronic age-related changes, negative for acute intracranial bleed or mass effect. Further evaluation by Neurology. 4. Chronic kidney disease. Follow up Dr Whitehead 5. History of recent stroke. FITZ RN Subjective Subjective Comfortable in NAD. No chest pain or SOB.In SR. Objective Last 24 Hour Vital Signs Date Time Temp Pulse Resp B/P Pulse Ox O2 Delivery O2 Flow Rate FiO2 05/26/16 16:00 97.6 70 20 169/105 98 Room Air 05/26/16 12:00 96.9 78 17 138/80 97 Room Air 05/26/16 12:00 76 05/26/16 08:05 68 18 Room Air 21 05/26/16 08:00 97.2 82 17 140/84 96 Room Air 05/26/16 08:00 92 05/26/16 05:00 151/86 05/26/16 04:30 98.7 66 20 161/94 96 Room Air 05/26/16 04:00 71 05/26/16 00:00 97.3 72 20 100/73 98 Room Air 05/26/16 00:00 77 05/25/16 22:59 97.9 05/25/16 20:00 97.9 65 19 143/83 98 Room Air 05/25/16 20:00 63 05/25/16 19:48 64 18 Room Air 21 Intake and Output 05/25/16 05/26/16 19:00 07:00 Intake Total 1180 ml 780 ml Output Total 860 ml 1200 ml Balance 320 ml -420 ml Intake Oral 780 ml 380 ml IV Total 400 ml 400 ml Output Urine Total 860 ml 1200 ml # Voids 4 2 Laboratory Tests Test 05/26/16 08:30 White Blood Count 5.9 K/UL (4.8-10.8) Red Blood Count 3.70 M/UL (4.70-6.10) L Hemoglobin 10.1 G/DL (14.2-18.0) L Hematocrit 31.1 % (42.0-52.0) L Mean Corpuscular Volume 84 FL (80-99) Mean Corpuscular Hemoglobin 27.2 PG (27.0-31.0) Mean Corpuscular Hemoglobin Concent 32.4 G/DL (32.0-36.0) Red Cell Distribution Width 13.1 % (11.6-14.8) Platelet Count 287 K/UL (150-450) Mean Platelet Volume 6.8 FL (6.5-10.1) Neutrophils (%) (Auto) 51.1 % (45.0-75.0) Lymphocytes (%) (Auto) 27.0 % (20.0-45.0) Monocytes (%) (Auto) 12.2 % (1.0-10.0) H Eosinophils (%) (Auto) 9.0 % (0.0-3.0) H Basophils (%) (Auto) 0.8 % (0.0-2.0) Sodium Level 141 mEQ/L (135-145) Potassium Level 4.0 mEQ/L (3.4-4.9) Chloride Level 102 mEQ/L (98-107) Carbon Dioxide Level 21 mEQ/L (20-30) Anion Gap 18 (5-15) H Blood Urea Nitrogen 45 mg/dL (7-23) H Creatinine 2.4 mg/dL (0.7-1.2) H Estimat Glomerular Filtration Rate 27.4 mL/min (>60) Glucose Level 95 mg/dL (74-106) Calcium Level 8.8 mg/dL (8.6-10.2) Current Medications Medications (Trade) Dose Ordered Sig/Jacob Route PRN Reason Start Time Stop Time Status Last Admin Dose Admin Acetaminophen (Tylenol) 650 mg Q4H PRN ORAL fever 05/22/16 16:15 06/21/16 16:14 Acetaminophen/ Hydrocodone Bitart ([place] 10/325) 1 ea Q6H PRN ORAL FOR PAIN 05/26/16 13:00 06/02/16 12:59 Al Hydroxide/Mg Hydroxide (Mylanta II) 30 ml Q6H PRN ORAL dyspepsia 05/22/16 16:15 06/21/16 16:14 Albuterol/ Ipratropium (DuoNeb 0.5-3(2.5)mg/3ml) 3 ml Q4H PRN HHN Shortness of Breath 05/22/16 16:15 05/27/16 16:14 Clonidine HCl (Catapres) 0.1 mg Q4H PRN ORAL For High Blood Pressure 05/22/16 16:15 06/21/16 16:14 05/23/16 23:11 Dextrose (Dextrose 50%) STAT PRN IV Hypoglycemia 05/22/16 16:15 06/21/16 16:14 Dextrose/Sodium Chloride (D5 0.45% NS) 1,000 ml @ 50 mls/hr Q20H IV 05/22/16 18:30 06/21/16 18:29 05/25/16 23:00 Heparin Sodium (Porcine) (Heparin 5000 units/ml) 5,000 units EVERY 12 HOURS SUBQ 05/22/16 21:00 06/21/16 20:59 05/26/16 09:07 Lorazepam (Ativan 2mg/ml 1ml) 0.5 mg Q4H PRN IV For Anxiety 05/22/16 16:15 05/29/16 16:14 Nitroglycerin (Ntg) 0.4 mg Q5M X 3 DOSES PRN SL Prn Chest Pain 05/22/16 16:15 06/21/16 16:14 Ondansetron HCl (Zofran) 4 mg Q6H PRN IVP Nausea & Vomiting 05/22/16 16:15 06/21/16 16:14 Polyethylene Glycol (Miralax) 17 gm HSPRN PRN ORAL Constipation 05/22/16 16:15 06/21/16 16:14 Promethazine HCl/ Codeine (Phenergan with Codeine) 5 ml Q4H PRN ORAL For Cough 05/22/16 16:15 06/21/16 16:14 Temazepam (Restoril) 15 mg HSPRN PRN ORAL Insomnia 05/22/16 16:15 05/29/16 16:14 Objective NECK: Shows no JVD. LUNGS: Coarse rhonchi. CARDIOVASCULAR: Shows regular S1 and S2 with no gallop or murmur. ABDOMEN: Soft. EXTREMITIES: No pitting edema. HAILEY LOOMIS May 26, 2016 17:22
--- NOTE | 2016-05-26 18:36 | Nephrology Progress Note ---
Assessment/Plan Problem List: (1) Hyperkalemia Assessment: corrected. (2) Renal insufficiency (3) Altered level of consciousness (4) HTN (hypertension) (5) CVA, old, hemiparesis Plan PT if pt agrees. d/c planning. Subjective Subjective pt not cooperative with nursing and PT. Objective Objective Last 24 Hour Vital Signs Date Time Temp Pulse Resp B/P Pulse Ox O2 Delivery O2 Flow Rate FiO2 05/26/16 16:00 97.6 70 20 169/105 98 Room Air 05/26/16 12:00 96.9 78 17 138/80 97 Room Air 05/26/16 12:00 76 05/26/16 08:05 68 18 Room Air 21 05/26/16 08:00 97.2 82 17 140/84 96 Room Air 05/26/16 08:00 92 05/26/16 05:00 151/86 05/26/16 04:30 98.7 66 20 161/94 96 Room Air 05/26/16 04:00 71 05/26/16 00:00 97.3 72 20 100/73 98 Room Air 05/26/16 00:00 77 05/25/16 22:59 97.9 05/25/16 20:00 97.9 65 19 143/83 98 Room Air 05/25/16 20:00 63 05/25/16 19:48 64 18 Room Air 21 Intake and Output 05/25/16 05/26/16 19:00 07:00 Intake Total 1180 ml 780 ml Output Total 860 ml 1200 ml Balance 320 ml -420 ml Intake Oral 780 ml 380 ml IV Total 400 ml 400 ml Output Urine Total 860 ml 1200 ml # Voids 4 2 Laboratory Tests 05/26/16 08:30: White Blood Count 5.9, Red Blood Count 3.70L, Hemoglobin 10.1L, Hematocrit 31.1L , Mean Corpuscular Volume 84, Mean Corpuscular Hemoglobin 27.2, Mean Corpuscular Hemoglobin Concent 32.4, Red Cell Distribution Width 13.1, Platelet Count 287, Mean Platelet Volume 6.8, Neutrophils (%) (Auto) 51.1, Lymphocytes (% ) (Auto) 27.0, Monocytes (%) (Auto) 12.2H, Eosinophils (%) (Auto) 9.0H, Basophils (%) (Auto) 0.8, Sodium Level 141, Potassium Level 4.0, Chloride Level 102, Carbon Dioxide Level 21, Anion Gap 18H, Blood Urea Nitrogen 45H, Creatinine 2.4H, Estimat Glomerular Filtration Rate 27.4, Glucose Level 95, Calcium Level 8.8 Height (Feet): 5 Height (Inches): 8.00 Weight (Pounds): 150 General Appearance: no apparent distress Cardiovascular: normal rate, regular rhythm Respiratory/Chest: lungs clear Abdomen: non tender, soft VENECIA FLORENCE May 26, 2016 18:36
[2016-05-26] MEDS: Norco 10mg/325mg tab ORAL PRN (20:02)
[2016-05-26] MEDS: D5 1/2NS 1,000 ML IV SCH (20:14)
[2016-05-27] VITALS: BP 117/52
[2016-05-27] MEDS: Norco 10mg/325mg tab ORAL PRN ×3 (02:51→18:17)
[2016-05-27 04:00] VITALS: BP 164/86
[2016-05-27] MEDS: Heparin 5000 units/ml inj SUBQ SCH ×2 (09:21→20:54)
[2016-05-27 12:00] VITALS: BP 148/84
--- NOTE | 2016-05-27 13:48 | Cardiac Electrophysiology PN ---
Assessment/Plan Assessment/Plan 1. Abnormal electrocardiogram with inferolateral ischemia.Ruled out for [place].Echocardiogram EF 60%. Schedule for stress test on Sunday. 2. Mild hypertension.Off antihypertensives stable 3. AMS/syncope, head CT showed chronic age-related changes, negative for acute intracranial bleed or mass effect. Further evaluation by Neurology. 4. Chronic kidney disease. Creatine 2.0 on iv fluid per Dr Whitehead 5. History of recent stroke. FITZ RN Subjective Subjective Comfortable in NAD. No chest pain or SOB.In SR.Refusing OT/PT.On IV fluids and pain medication. Objective Last 24 Hour Vital Signs Date Time Temp Pulse Resp B/P Pulse Ox O2 Delivery O2 Flow Rate FiO2 05/27/16 12:00 96.9 86 18 148/84 100 Room Air 05/27/16 12:00 83 05/27/16 08:00 80 05/27/16 07:30 68 18 Room Air 21 05/27/16 04:00 97.0 65 16 164/86 99 Room Air 05/27/16 00:00 81 05/27/16 00:00 97.7 83 20 117/52 97 Nasal Cannula 2.0 05/26/16 20:15 69 18 Room Air 21 05/26/16 20:00 66 05/26/16 20:00 97.7 67 20 164/97 98 Room Air 05/26/16 18:54 74 146/71 05/26/16 16:00 97.6 70 20 169/105 98 Room Air 05/26/16 16:00 78 Intake and Output 05/26/16 05/27/16 19:00 07:00 Intake Total 1240 ml 1078 ml Output Total 860 ml 1300 ml Balance 380 ml -222 ml Intake Oral 640 ml 540 ml IV Total 600 ml 538 ml Output Urine Total 860 ml 1300 ml # Voids 3 Labs Test 05/26/16 08:30 White Blood Count 5.9 K/UL (4.8-10.8) Red Blood Count 3.70 M/UL (4.70-6.10) Hemoglobin 10.1 G/DL (14.2-18.0) Hematocrit 31.1 % (42.0-52.0) Mean Corpuscular Volume 84 FL (80-99) Mean Corpuscular Hemoglobin 27.2 PG (27.0-31.0) Mean Corpuscular Hemoglobin Concent 32.4 G/DL (32.0-36.0) Red Cell Distribution Width 13.1 % (11.6-14.8) Platelet Count 287 K/UL (150-450) Mean Platelet Volume 6.8 FL (6.5-10.1) Neutrophils (%) (Auto) 51.1 % (45.0-75.0) Lymphocytes (%) (Auto) 27.0 % (20.0-45.0) Monocytes (%) (Auto) 12.2 % (1.0-10.0) Eosinophils (%) (Auto) 9.0 % (0.0-3.0) Basophils (%) (Auto) 0.8 % (0.0-2.0) Sodium Level 141 mEQ/L (135-145) Potassium Level 4.0 mEQ/L (3.4-4.9) Chloride Level 102 mEQ/L (98-107) Carbon Dioxide Level 21 mEQ/L (20-30) Anion Gap 18 (5-15) Blood Urea Nitrogen 45 mg/dL (7-23) Creatinine 2.4 mg/dL (0.7-1.2) Estimat Glomerular Filtration Rate 27.4 mL/min (>60) Glucose Level 95 mg/dL (74-106) Calcium Level 8.8 mg/dL (8.6-10.2) Current Medications Medications (Trade) Dose Ordered Sig/Jacob Route PRN Reason Start Time Stop Time Status Last Admin Dose Admin Acetaminophen (Tylenol) 650 mg Q4H PRN ORAL fever 05/22/16 16:15 06/21/16 16:14 Acetaminophen/ Hydrocodone Bitart ([place] 10/325) 1 ea Q6H PRN ORAL FOR PAIN 05/26/16 13:00 06/02/16 12:59 05/27/16 09:23 Al Hydroxide/Mg Hydroxide (Mylanta II) 30 ml Q6H PRN ORAL dyspepsia 05/22/16 16:15 06/21/16 16:14 Albuterol/ Ipratropium (DuoNeb 0.5-3(2.5)mg/3ml) 3 ml Q4H PRN HHN Shortness of Breath 05/22/16 16:15 05/27/16 16:14 Clonidine HCl (Catapres) 0.1 mg Q4H PRN ORAL For High Blood Pressure 05/22/16 16:15 06/21/16 16:14 05/23/16 23:11 Dextrose (Dextrose 50%) STAT PRN IV Hypoglycemia 05/22/16 16:15 06/21/16 16:14 Dextrose/Sodium Chloride (D5 0.45% NS) 1,000 ml @ 50 mls/hr Q20H IV 05/22/16 18:30 06/21/16 18:29 05/26/16 20:14 Heparin Sodium (Porcine) (Heparin 5000 units/ml) 5,000 units EVERY 12 HOURS SUBQ 05/22/16 21:00 06/21/16 20:59 05/27/16 09:21 Lorazepam (Ativan 2mg/ml 1ml) 0.5 mg Q4H PRN IV For Anxiety 05/22/16 16:15 05/29/16 16:14 Nitroglycerin (Ntg) 0.4 mg Q5M X 3 DOSES PRN SL Prn Chest Pain 05/22/16 16:15 06/21/16 16:14 Ondansetron HCl (Zofran) 4 mg Q6H PRN IVP Nausea & Vomiting 05/22/16 16:15 06/21/16 16:14 Polyethylene Glycol (Miralax) 17 gm HSPRN PRN ORAL Constipation 05/22/16 16:15 06/21/16 16:14 Promethazine HCl/ Codeine (Phenergan with Codeine) 5 ml Q4H PRN ORAL For Cough 05/22/16 16:15 06/21/16 16:14 Temazepam (Restoril) 15 mg HSPRN PRN ORAL Insomnia 05/22/16 16:15 05/29/16 16:14 Objective NECK: Shows no JVD. LUNGS: Coarse rhonchi. CARDIOVASCULAR: Shows regular S1 and S2 with no gallop or murmur. ABDOMEN: Soft. EXTREMITIES: No pitting edema. HAILEY LOOMIS May 27, 2016 13:48
[2016-05-27 16:00] VITALS: BP 150/88
[2016-05-27] MEDS: D5 1/2NS 1,000 ML IV SCH (18:17)
[2016-05-27 20:00] VITALS: BP 148/99
--- NOTE | 2016-05-27 20:59 | Nephrology Progress Note ---
Assessment/Plan Problem List: (1) Hyperkalemia Assessment: corrected. (2) Renal insufficiency Assessment: Cr worse. on IVF> (3) Altered level of consciousness (4) HTN (hypertension) (5) CVA, old, hemiparesis Plan PT if pt agrees. stress test per cardio. f/u labs in am. Subjective Subjective uncooperative. Objective Objective Last 24 Hour Vital Signs Date Time Temp Pulse Resp B/P Pulse Ox O2 Delivery O2 Flow Rate FiO2 05/27/16 20:00 83 18 148/99 99 Room Air 05/27/16 16:00 97.9 89 19 150/88 98 Room Air 05/27/16 12:00 96.9 86 18 148/84 100 Room Air 05/27/16 12:00 83 05/27/16 08:00 80 05/27/16 07:30 68 18 Room Air 21 05/27/16 04:00 97.0 65 16 164/86 99 Room Air 05/27/16 00:00 81 05/27/16 00:00 97.7 83 20 117/52 97 Nasal Cannula 2.0 Intake and Output 05/26/16 05/27/16 19:00 07:00 Intake Total 1240 ml 1078 ml Output Total 860 ml 1300 ml Balance 380 ml -222 ml Intake Oral 640 ml 540 ml IV Total 600 ml 538 ml Output Urine Total 860 ml 1300 ml # Voids 3 Height (Feet): 5 Height (Inches): 8.00 Weight (Pounds): 150 General Appearance: no apparent distress Cardiovascular: normal rate, regular rhythm Respiratory/Chest: lungs clear Abdomen: non tender, soft VENECIA FLORENCE May 27, 2016 20:59
--- NOTE | 2016-05-27 21:29 | Progress Note ---
SUBJECTIVE: This is a 66-year-old male, who currently was sitting in the room, came to the emergency room for having renal insufficiency, hyperkalemia, and CVA. The patient is nonverbal. The patient is currently alert, awake, generalized weakness. Past medical history is significant for renal insufficiency, CVA, allergy, and . The patient also had accident. PHYSICAL EXAMINATION: GENERAL: This is a 66-year-old male, who is currently awake and comfortable, sitting in the bed. VITAL SIGNS: Blood pressure is 140/90, pulse 74, and respirations 18. SKIN: Good skin turgor. HEENT: AT/NC. EOMI. PERRLA. NECK: Supple. No JVD. CHEST: Bilaterally clear. CARDIOVASCULAR: Regular rhythm. No gallop. No murmur. ABDOMEN: Soft. EXTREMITIES: CCE. NEUROLOGIC: The patient has no focal deficit. GENITOURINARY: Deferred. LABORATORY DATA: Laboratory examinations not available. ASSESSMENT: 1. Dehydration. 2. Renal insufficiency. 3. Hyperkalemia. 4. Cerebrovascular accident. 5. Accident. We will currently continue PT and OT. Continue IV hydration and discussed with Dr. Whitehead, Nephrology consult. Alfonso Arrington M.D. DR: MICHELL JOB#: [id number] CC:
[2016-05-28 00:05] VITALS: BP 157/90
[2016-05-28] MEDS: Norco 10mg/325mg tab ORAL PRN ×3 (03:03→23:41)
[2016-05-28 04:30] VITALS: BP 154/88
[2016-05-28 06:15] LABS: CALCIUM 8.9 mg/dL (8.6-10.2); CREATININE 2.2 mg/dL (0.7-1.2); GLOMERULAR FILTRATION RATE 30.3 mL/min (>60); POTASSIUM 4.2 mEQ/L (3.4-4.9)
[2016-05-28 08:00] VITALS: BP 142/74
[2016-05-28] MEDS: Heparin 5000 units/ml inj SUBQ SCH ×2 (08:58→21:00)
--- NOTE | 2016-05-28 11:29 | Progress Note ---
SUBJECTIVE: This is an elderly 66-year-old male, currently sitting in the bed, comfortable, in no distress. OBJECTIVE: VITAL SIGNS: Blood pressure is 120/70, pulse 74, and respirations 18. SKIN: Good skin turgor. HEENT: AT/NC. EOMI. PERRLA. NECK: Supple. CHEST: Bilaterally clear. CARDIOVASCULAR: Regular rhythm. No gallop. No murmur. ABDOMEN: Soft. EXTREMITIES: CCE. NEUROLOGICALLY: The patient has no focal deficit. GENITOURINARY: Deferred. LABORATORY AND DIAGNOSTIC DATA: Laboratory exams pending. ASSESSMENT AND PLAN: 1. Renal insufficiency. 2. Cerebrovascular accident. 3. Hyperkalemia. PLAN: Continue . Monitor BUN and creatinine. Continue PT and OT. Continue supportive treatment. Alfonso Arrington M.D. DR: Eusebia JOB#: [id number] CC:
[2016-05-28 12:00] VITALS: BP 144/79
[2016-05-28] MEDS: D5 1/2NS 1,000 ML IV SCH (14:45)
[2016-05-28 16:00] VITALS: BP 140/77
[2016-05-28] MEDS ORDERED: D5 1/2NS 1000ml IV ONE (17:30)
[2016-05-28 20:00] VITALS: BP 130/69
[2016-05-29] VITALS: BP 158/98
[2016-05-29 04:30] VITALS: BP 160/94
[2016-05-29] MEDS: Norco 10mg/325mg tab ORAL PRN ×2 (05:43→11:52)
[2016-05-29 06:52] LABS: TROPONIN I < 0.30 ng/mL (<=0.30)
[2016-05-29] MEDS: Heparin 5000 units/ml inj SUBQ SCH (08:11)
[2016-05-29 08:12] VITALS: BP 176/107
[2016-05-29] MEDS: D5 1/2NS 1,000 ML IV SCH ×2 (10:30→11:40)
[2016-05-29 11:28] VITALS: BP 137/78
--- NOTE | 2016-05-29 13:30 | Nephrology Progress Note ---
Assessment/Plan Problem List: (1) HTN (hypertension) (2) CVA, old, hemiparesis (3) Altered level of consciousness (4) Hyperkalemia (5) Renal insufficiency (6) ARF (acute renal failure) (7) Anemia of chronic disease Plan Continue IVF - pt refused Monitor BUN/cr Monitor Lytesl PT/OT eval. Monitor neuro status Monitor H&H, transfuse PRN DVT ppx. Cardio f/u Neuro f/u Subjective Constitutional: Denies: chills, diaphoresis, fever, malaise, no symptoms, other , weakness HEENT: Denies: blurred vision, double vision, ear discharge, ear pain, eye pain , mouth pain, mouth swelling, no symptoms, nose congestion, nose pain, other, tearing, throat pain, throat swelling Genitourinary: Denies: burning, discharge, flank pain, frequency, hematuria, incontinence, no symptoms, other, pain, urgency Neurologic/Psychiatric: Denies: anxiety, depressed, emotional problems, headache, no symptoms, numbness, other, paresthesia, pre-existing deficit, seizure, tingling, tremors, weakness Subjective In bed, in no distress, denies discomfort Objective Objective Last 24 Hour Vital Signs Date Time Temp Pulse Resp B/P Pulse Ox O2 Delivery O2 Flow Rate FiO2 05/29/16 11:28 96.3 78 20 137/78 100 Room Air 05/29/16 08:12 96.3 77 20 176/107 97 Room Air 05/29/16 08:11 176/107 05/29/16 08:06 85 05/29/16 04:30 97.5 73 20 160/94 100 Room Air 05/29/16 03:52 66 05/29/16 00:00 97.7 74 20 158/98 98 Room Air 05/28/16 23:35 75 05/28/16 20:00 86 05/28/16 20:00 97.3 84 18 130/69 99 Room Air 05/28/16 16:00 97.0 80 18 140/77 98 Room Air 05/28/16 16:00 86 Intake and Output 05/28/16 05/29/16 19:00 07:00 Intake Total 1257 ml 700 ml Output Total 640 ml 750 ml Balance 617 ml -50 ml Intake Oral 680 ml IV Total 577 ml 700 ml Output Urine Total 640 ml 750 ml # Voids 4 2 # Bowel Movements 1 Laboratory Tests 05/29/16 04:15: Troponin I < 0.30 Height (Feet): 5 Height (Inches): 8.00 Weight (Pounds): 150 General Appearance: no apparent distress, alert EENT: normal ENT inspection Neck: normal alignment, supple Cardiovascular: normal rate, regular rhythm, no JVD Respiratory/Chest: lungs clear, normal breath sounds, no respiratory distress Abdomen: non tender, soft, no organomegaly, no mass Extremities: non-tender, normal inspection, no calf tenderness, normal capillary refill Neurologic: alert, responsive, normal mood/affect Yadira Brewster N.P. May 29, 2016 13:30
--- NOTE | 2016-05-29 14:44 | Cardiac Electrophysiology PN ---
Assessment/Plan Assessment/Plan 1. Abnormal electrocardiogram with inferolateral ischemia.Ruled out for NH.Echocardiogram EF 60%. Refused stress test! 2. Mild hypertension.Off antihypertensives stable 3. AMS/syncope, head CT showed chronic age-related changes, negative for acute intracranial bleed or mass effect. Further evaluation by Neurology. 4. Chronic kidney disease. Creatine 2.0 on iv fluid per Dr Whitehead 5. History of recent stroke. FITZ RN OK to DC from cardiac stand point. Subjective Subjective Comfortable in NAD. No chest pain or SOB.In SR.Refusing OT/PT and stress test. Objective Last 24 Hour Vital Signs Date Time Temp Pulse Resp B/P Pulse Ox O2 Delivery O2 Flow Rate FiO2 05/29/16 11:59 72 05/29/16 11:28 96.3 78 20 137/78 100 Room Air 05/29/16 08:12 96.3 77 20 176/107 97 Room Air 05/29/16 08:11 176/107 05/29/16 08:06 85 05/29/16 04:30 97.5 73 20 160/94 100 Room Air 05/29/16 03:52 66 05/29/16 00:00 97.7 74 20 158/98 98 Room Air 05/28/16 23:35 75 05/28/16 20:00 86 05/28/16 20:00 97.3 84 18 130/69 99 Room Air 05/28/16 16:00 97.0 80 18 140/77 98 Room Air 05/28/16 16:00 86 Intake and Output 05/28/16 05/29/16 19:00 07:00 Intake Total 1257 ml 700 ml Output Total 640 ml 750 ml Balance 617 ml -50 ml Intake Oral 680 ml IV Total 577 ml 700 ml Output Urine Total 640 ml 750 ml # Voids 4 2 # Bowel Movements 1 Laboratory Tests Test 05/29/16 04:15 Troponin I < 0.30 ng/mL (<=0.30) Objective NECK: Shows no JVD. LUNGS: Coarse rhonchi. CARDIOVASCULAR: Regular S1 and S2 with no gallop or murmur. ABDOMEN: Soft. EXTREMITIES: No pitting edema. HAILEY LOOMIS May 29, 2016 14:44
--- NOTE | 2016-05-29 20:48 | Progress Note ---
SUBJECTIVE: This is an elderly 66-year-old male, who is currently awake, comfortable, in no distress. OBJECTIVE: VITAL SIGNS: Blood pressure is 130/70, pulse 60, and respiration 18. HEENT: NAD. CHEST: Bilaterally clear. CARDIOVASCULAR: Regular rhythm. No gallop. No murmur. ABDOMEN: Soft. EXTREMITIES: CCE. NEUROLOGIC: The patient is in no focal deficit. SKIN: Good skin turgor. ASSESSMENT AND PLAN: 1. Renal insufficiency. 2. Hyperkalemia. 3. Cerebrovascular accident. PLAN: We will currently continue current treatment. Continue supportive treatment, PT, and OT. Nephrology on case. Alfonso Arrington M.D. DR: Adrian JOB#: [id number] CC:
--- NOTE | 2016-05-30 15:22 | Discharge Summary ---
Discharge Summary Hospital Course Date of Admission May 22, 2016 at 15:18 Date of Discharge May 29, 2016 at 16:30 Admitting Diagnosis renal insufficiency, hyperkalemia, cva HPI Prashant Lemons is a 66 year old male who was admitted on May 22, 2016 at 15:18 for Renal Insufficiency Hyperkalemia Cerebrovascular Hospital Course dc summary [id number] # [id number] Discharge Condition Upon Discharge: stable Discharge Disposition Patient was discharged to Home (01) Discharge Diagnoses: Nimesh (Danielvannessa),Lillie ARECHIGA May 30, 2016 15:22
--- NOTE | 2016-05-31 01:08 | Discharge Summary 2 SIG ---
DATE OF ADMISSION: 05/22/2016 DATE OF DISCHARGE: 05/29/2016 REASON FOR ADMISSION: 66-year-old male, presented to emergency room with altered level of consciousness. The patient apparently had a recent stroke. Recently, the patient noted to have increased difficulty with his left upper extremity and left lower extremity. The patient has a history of prior renal insufficiency. The patient was unaware of any medication. Workup in the emergency room revealed T-wave inversion on ECG. Normal sinus rhythm with evidence of possible inferolateral ischemia. No leukocytosis and mild anemia at 10.5 and 32.3. Evidence of renal failure with creatinine of 2.7, BUN of 39, and potassium of 5.3. CT of the head revealed no acute intracranial pathology, such as bleeding or mass effect, but demonstrated chronic age-related changes. Pulse oximetry was stable on the room air. The patient was afebrile and normotensive. ADMITTING DIAGNOSES: Acute encephalopathy. History of recent CVA with left hemiparesis. Hyperkalemia. Acute renal failure/acute tubular necrosis on chronic kidney disease. Hypertension. Possible inferolateral ischemia. HOSPITAL STAY: The patient was admitted to telemetry floor. Cardiology consult was requested. Serial troponin were negative. EKG revealed no ischemic changes. Thus, the patient was ruled out for acute myocardial infarction. Echocardiogram revealed ejection fraction of 55% to 60% and mild left ventricular hypertrophy. The patient declined stress test. No cardiac complaints. The patient has evidence of mild hypertension, but currently all antihypertensive medication were on hold in view of possible recurrence of the stroke and blood pressure was stable. With intravenous fluids, creatinine was down to 2.2. Thus, acute component of renal failure resolved. The patient has a chronic kidney insufficiency. Renal ultrasound revealed normal echogenicity in bilateral kidneys and no hydronephrosis. Potassium down to normal. The patient was working with physical and occupational therapists. DVT prophylaxis provided. The patient noted to be anemic. However, anemia on the baseline, no trend down. Recommended anemia workup as outpatient. Mental status back to baseline. The patient was cleared for discharge . DISCHARGE DIAGNOSES: 1. Acute metabolic encephalopathy, resolved. 2. History of recent CVA with left hemiparesis. 3. Hyperkalemia, resolved. 4. Acute renal failure on chronic kidney disease, improved. 5. Mild hypertension, stable. 6. Possible inferolateral ischemia on the EKG. 7. Anemia. DISCHARGE MEDICATIONS: See medication reconciliation list. DISCHARGE INSTRUCTIONS: The patient was discharged home. Follow up with the primary medical doctor and anemia workup as outpatient. Yo Whitehead M.D. I have been assigned to dictate discharge summary on this account and I was not involved in the patient's management. Lillie Hassantboi NMark DR: KARIN JOB#: [id number] CC: ROBINA
== END 2016-05-29 16:30 | disposition home or self-care (01) | DRG 52 ==
LOC: ENRESERVTM → ENRESERVDT → EDBD 12:24 → EMR 12:40 → 2E 15:18 → EDBEDREQ 18:19 → 2E 20:49
DX: G93.41 Metabolic encephalopathy (principal); N17.0 Acute kidney failure with tubular necrosis; I69.359 Hemiplegia and hemiparesis following cerebral infarction affecting unspecified side; E87.5 Hyperkalemia; I12.9 Hypertensive chronic kidney disease with stage 1 through stage 4 chronic kidney disease, or unspecified chronic kidney disease; N18.9 Chronic kidney disease, unspecified; D64.9 Anemia, unspecified; E86.0 Dehydration; I25.9 Chronic ischemic heart disease, unspecified
CPT/HCPCS: 36415; 70450; 76775; 80048; 80053; 80061; 80300; 80329; 81001; 82533; 82550; 83735; 83880; 83930; 84100; 84439; 84443; 84481; 84484; 84550; 85025; 85610; 85730; 89050; 93005; 93306; 94664; J7620